=== PATIENT | male | born 1935 | race Caucasian/White ===

== ENCOUNTER 2017-04-23 12:18 | Emergency (ER) | payer MEDICARE ==
[2017-04-23 12:26] VITALS: BP 147/74
[2017-04-23] MEDS ORDERED: Albuterol/Ipratropium NEB.SOL* Albuterol 2.5 MG/Ipratropium 0.5 MG 3 ML INH ONE (13:04)
[2017-04-23] MEDS ORDERED: methylPREDNISolone 125 MG* 2 ML VIAL IV ONE (13:04)
[2017-04-23] MEDS ORDERED: methylPREDNISolone 125 MG* 2 ML VIAL IM ONE (13:12)
--- NOTE | 2017-04-23 14:14 | UC ---
Respiratory Complaint HPI - HPI Summary HPI Summary: pt p/w 1 week of cough cough productive of yellow sputum. . - History of Current Complaint Chief Complaint: UCRespiratory Stated Complaint: RESPIRATORY,SOB,WHEEZING Time Seen by Provider: 04/23/17 13:04 Hx Obtained From: Patient Onset/Duration: Gradual Onset Timing: Constant Severity Initially: Moderate Severity Currently: Moderate Pain Intensity: 0 Character: Sputum Description: - clear to yellow Aggravating Factors: Exertion, Deep Breaths Alleviating Factors: Upright Position Associated Signs And Symptoms: Positive: Dyspnea, Wheezing, URI, Nasal Congestion. Negative: Fever, Chills, Pleuritic Chest Pain, Hemoptysis, Dizziness, Hoarseness, Sinus Discomfort - Allergies/Home Medications Allergies/Adverse Reactions: Allergies Allergy/AdvReac Type Severity Reaction Status Date / Time Amoxicillin [From Augmentin] Allergy Rash Verified 04/25/17 11:57 Clavulanic Acid Allergy Rash Verified 04/25/17 11:57 [From Augmentin] PMH/Surg Hx/FS Hx/Imm Hx Endocrine History: Dyslipidemia Cardiovascular History: Hypertension Respiratory History: Other Other Respiratory History: copd GI/ History: Gastroesophageal Reflux, Other - BPH Other GI/ History: bph - Surgical History Surgical History: Yes Surgery Procedure, Year, and Place: bladder cystectomy - Family History Known Family History: Negative: Cardiac Disease, Hypertension, Diabetes - Social History Occupation: Retired Lives: With Family Alcohol Use: None Substance Use Type: None Smoking Status (MU): Former Smoker When Did the Patient Quit Smoking/Using Tobacco: 20 years ago Review of Systems Constitutional: Negative Skin: Negative Eyes: Negative ENT: Negative Respiratory: Shortness Of Breath, Cough Cardiovascular: Negative Gastrointestinal: Negative Genitourinary: Negative Motor: Negative Neurovascular: Negative Musculoskeletal: Negative Neurological: Negative Psychological: Negative All Other Systems Reviewed And Are Negative: Yes Physical Exam Triage Information Reviewed: Yes Appearance: Well-Appearing, No Pain Distress, Well-Nourished Vital Signs: Initial Vital Signs Temp 97.6 F 04/23/17 12:20 Pulse 84 04/23/17 12:20 Resp 20 04/23/17 12:20 BP 147/74 04/23/17 12:20 Pulse Ox 95 04/23/17 12:20 Vital Signs Reviewed: Yes Eyes: Positive: Conjunctiva Clear. Negative: Discharge ENT: Positive: Hearing grossly normal. Negative: Muffled/hoarse voice Neck: Positive: Supple, Nontender, No Lymphadenopathy Respiratory: Positive: No respiratory distress, No accessory muscle use, Wheezing - mod diffuse wheezing all feilds, Expiration - prolonged at bases Cardiovascular: Positive: RRR, No Murmur Musculoskeletal Exam: Normal Neurological: Positive: Alert, Muscle Tone Normal Psychological: Positive: Age Appropriate Behavior Skin Exam: Normal - warm dry normal color UC Diagnostic Evaluation - Laboratory O2 Sat by Pulse Oximetry: 95 Respiratory Course/Dx - Course Course Of Treatment: re-eval s/p neb: subjective improvement, decreased wheezing and better air movement on auscultation - Differential Dx/Diagnosis Differential Diagnosis/HQI/PQRI: Bronchitis, Exacerbation Of COPD, Lower Resp Infection Provider Diagnoses: bronchitis Discharge - Discharge Plan Condition: Stable Disposition: HOME Prescriptions: Albuterol HFA INHALER* [Ventolin HFA Inhaler*] 1 - 2 puff INH Q4H PRN #1 mdi PRN Reason: Sob/Wheezing Cefdinir [Cefdinir 300 MG CAP] 300 mg PO BID #20 cap Spacer/Aerosol-Holding Chamber [Aerochamber Plus] 1 mis XX SEE INSTRUCTIONS #1 mis predniSONE TAB* [Deltasone TAB*] 40 mg PO DAILY #8 tab Patient Education Materials: Acute Bronchitis (ED) Referrals: Non Staff,Doctor [Primary Care Provider] - Additional Instructions: PLEASE BRING THESE DISCHARGE INSTRUCTIONS IN TO THE PHARMACIST AND ASK HIM/HER TO SHOW YOU THE PROBIOTIC SUPPLEMENTS. ALL ASK HIM/HER TO SHOW YOU HOW TO USE THE AEROCHAMBER WITH THE INHALER. CEPHALOSPORINS: An antibiotic of the cephalosporin class has been prescribed. This type of antibiotic covers a wide variety of infections, including those of the skin, lungs, middle ear, and urinary tract. This antibiotic is somewhat similar to the penicillin family. In rare cases , a person who is allergic to penicillin will also be allergic to this medication. If you have had a severe allergic reaction to penicillin, and have not taken this antibiotic since that time, notify your doctor. Antibiotics which cover many germs ("broad spectrum" antibiotics) are more likely to cause diarrhea or "yeast" infections. Women prone to vaginal yeast problems may suffer an attack after taking this antibiotic. In infants, oral thrush (white spots "stuck" on the cheek) or yeast diaper rash may result. See your doctor if these problems occur. Call the doctor at once if you develop hives, itching, shortness of breath , or lightheadedness. ANYTIME YOU TAKE AN ANTIBIOTIC, IT IS IMPORTANT TO REPLENISH THE BODY'S SUPPLY OF "GOOD BACTERIA." YOU CAN GET GOOD BACTERIA FROM HIGH QUALITY CULTURED FOODS SUCH LOCAL YOGURT, SOUR KRAUT, TRACEY JOSE, NATURALLY FERMENTED PICKLES AND PROBIOTIC DRINKS. YOU CAN ALSO GET GOOD BACTERIA FROM A PROBIOTIC SUPPLEMENT. CORTICOSTEROID MEDICATION: You have been given a medicine of the cortisone class. This medication is used to control inflammation or allergy. It is usually only given for a short period of time, until the acute process subsides. There are usually no side effects from short-term use of cortisone-like medications. Some persons feel an increased sense of well-being and are not sleepy at bedtime. Long-term use of cortisone medications is best avoided, unless required for a severe condition. If your condition does not remit, or relapses after the course of corticosteroid medication, you should consult your physician. Contact the physician if you develop lightheadedness, black or tarry stools , swelling of the legs, or significant rapid change in weight. INHALED BRONCHODILATORS: You have received a prescription for an inhaled bronchodilator -- a medication which stimulates the airways in the lung to dilate. This improves the flow of air in asthma, bronchitis, and emphysema. These medicines have some similarity to adrenaline, and can cause similar side effects: shakiness, racing heart, and a sense of nervousness. These side effects decrease with time. Contact your doctor if these side effects are severe. Do not over-use the medicine. Too-frequent use of the inhaler may make it ineffective. Call your doctor if the inhaler is not controlling your symptoms at the prescribed doses. EXPECTORANT MEDICATION: WE SENT IN A SCRIPT FOR MUCINEX SO THAT IT IS EASIER FOR YOU TO PICK THE RIGHT MED AT THE PHARMACY. HOWEVER, YOU CAN ALSO GO TO THE [email or web address] [facility]ORE AND BUY PLAIN GUAIFENESIN WITHOU BINDERS OR FILLERS. An expectorant medicine has been prescribed. This type of drug makes mucous thinner, helping the sinuses, nose, and bronchial tubes to remain free of pus and mucous. Expectorants make a cough less severe and more comfortable, and help infected sinuses drain. In general, antihistamines defeat the purpose of the expectorant by making mucous thicker. They should be avoided unless specifically recommended by your physician. FOLLOW UP: RETURN FOR RE-EVALUATION IN 2 DAYS. THIS FOLLOW UP VISIT IS IMPORTANT. WE WANT TO KNOW THAT YOU ARE IMPROVING AFTER 2 DAYS OF TREATMENT. IF YOU CAN NOT GET IN TO YOUR PCP'S OFFICE, RETURN HERE FOR FOLLOW UP. FOLLOW UP SOONER IF SYMPTOMS WORSEN.
== END 2017-04-23 14:19 | disposition home or self-care (01) ==
LOC: UCCORT 12:18
DX: J40 Bronchitis, not specified as acute or chronic (principal); E78.5 Hyperlipidemia, unspecified; I10 Essential (primary) hypertension; J44.9 Chronic obstructive pulmonary disease, unspecified; K21.9 Gastro-esophageal reflux disease without esophagitis; N40.0 Benign prostatic hyperplasia without lower urinary tract symptoms; Z88.1 Allergy status to other antibiotic agents; Z87.891 Personal history of nicotine dependence
CPT/HCPCS: 96372; 99212; A9270-GY; G0463; J2930

== ENCOUNTER 2017-04-25 11:40 | Emergency (ER) | payer MEDICARE ==
[2017-04-25 11:57] VITALS: BP 157/67
--- NOTE | 2017-04-25 12:27 | UC ---
Respiratory Complaint HPI - HPI Summary HPI Summary: URI and cough. He was seen here two days agao and prescribed medications. he is feeling better. today is for a recheck. He denies cp or fever. Breathing and cough has improved - History of Current Complaint Chief Complaint: UCRespiratory Stated Complaint: RE-CHECK RESPIRATORY Time Seen by Provider: 04/25/17 12:13 Hx Obtained From: Patient Onset/Duration: Sudden Onset, Still Present Character: Cough: Nonproductive Aggravating Factors: Deep Breaths, Recumbent Position Alleviating Factors: Bronchodilator Associated Signs And Symptoms: Positive: URI, Nasal Congestion, Hoarseness. Negative: Dyspnea, Fever, Chills, Hemoptysis, Calf Pain, Calf Swelling - Allergies/Home Medications Allergies/Adverse Reactions: Allergies Allergy/AdvReac Type Severity Reaction Status Date / Time Amoxicillin [From Augmentin] Allergy Rash Verified 04/25/17 11:57 Clavulanic Acid Allergy Rash Verified 04/25/17 11:57 [From Augmentin] PMH/Surg Hx/FS Hx/Imm Hx Previously Healthy: No - recent pnuemonia a few months ago. - Surgical History Surgical History: Yes Surgery Procedure, Year, and Place: bladder cystectomy - Family History Known Family History: Negative: Cardiac Disease, Hypertension, Diabetes - Social History Alcohol Use: None Substance Use Type: None Smoking Status (MU): Former Smoker When Did the Patient Quit Smoking/Using Tobacco: 20 years ago Review of Systems Respiratory: Cough All Other Systems Reviewed And Are Negative: Yes Physical Exam Triage Information Reviewed: Yes Appearance: Well-Appearing, No Pain Distress, Well-Nourished Vital Signs: Initial Vital Signs Temp 98.0 F 04/25/17 11:54 Pulse 73 04/25/17 11:54 Resp 14 04/25/17 11:54 BP 157/67 04/25/17 11:54 Pulse Ox 96 04/25/17 11:54 Vital Signs Reviewed: Yes Eye Exam: Normal ENT Exam: Normal Neck exam: Normal Respiratory Exam: Normal Cardiovascular Exam: Normal Abdominal Exam: Normal Musculoskeletal Exam: Normal Neurological Exam: Normal Psychological Exam: Normal Skin Exam: Normal UC Diagnostic Evaluation - Laboratory O2 Sat by Pulse Oximetry: 96 Respiratory Course/Dx - Course Course Of Treatment: cough and congestion has improved. He has no worrisome symptoms or findings. he agrees to return immediately should he rebound after meds are completed. - Differential Dx/Diagnosis Provider Diagnoses: acute bronchitis. re evaluation. Discharge - Discharge Plan Condition: Good Disposition: HOME Patient Education Materials: Acute Bronchitis (ED) Referrals: Non Staff,Doctor [Primary Care Provider] - Additional Instructions: return here if you get worse again.
== END 2017-04-25 12:37 | disposition home or self-care (01) ==
LOC: UCCORT 11:40
DX: J20.9 Acute bronchitis, unspecified (principal); Z87.891 Personal history of nicotine dependence
CPT/HCPCS: 99212; G0463

== ENCOUNTER 2017-05-15 13:52 | Emergency (ER) | payer MEDICARE ==
[2017-05-15 14:02] VITALS: BP 158/71
[2017-05-15] MEDS ORDERED: Albuterol/Ipratropium NEB.SOL* Albuterol 2.5 MG/Ipratropium 0.5 MG 3 ML INH ONE (14:05)
--- NOTE | 2017-05-15 14:43 | RAD ---
HISTORY: Cough, shortness of breath COMPARISONS: September 20, 2012 VIEWS: 4: Frontal dual-energy and lateral views of the chest. FINDINGS: CARDIOMEDIASTINAL SILHOUETTE: The cardiomediastinal silhouette is normal. RAJESH: The rajesh are normal. PLEURA: The costophrenic angles are sharp. No pleural abnormalities are noted. LUNG PARENCHYMA: The lungs are clear. ABDOMEN: The upper abdomen is clear. There is no subphrenic gas. BONES AND SOFT TISSUES: No bone or soft tissue abnormalities are noted. OTHER: None. IMPRESSION: NO ACTIVE CARDIOPULMONARY DISEASE.
--- NOTE | 2017-05-15 15:23 | UC ---
Respiratory Complaint HPI - HPI Summary HPI Summary: This is a 81 yo gentleman who was treated for acute bronchitis ~ 3 weeks ago. He was treated with cefdinir, albuterol and prednisone. He has a h/o smoking but quit 20 yrs ago and has not required regular inhalers for COPD. He is visiting his grandchildren for 6 weeks in the area, but is from [place]. Before his trip he was sick with PNA. He reports he felt somewhat better with his last treatment 3 weeks ago, but has been progressively getting worse again since his medications have stopped. He reports SOB and cough with audible wheeze. No fever or chills. No n/v. He still has his albuterol inhaler and receives mild relief from its use. - History of Current Complaint Chief Complaint: UCRespiratory Stated Complaint: TROUBLE BREATHING,COUGH Pain Intensity: 0 Pain Scale Used: 0-10 Numeric - Allergies/Home Medications Allergies/Adverse Reactions: Allergies Allergy/AdvReac Type Severity Reaction Status Date / Time Amoxicillin [From Augmentin] Allergy Rash Verified 05/15/17 14:02 Clavulanic Acid Allergy Rash Verified 05/15/17 14:02 [From Augmentin] PMH/Surg Hx/FS Hx/Imm Hx Respiratory History: COPD - Surgical History Surgical History: Yes Surgery Procedure, Year, and Place: bladder cystectomy - Family History Known Family History: Negative: Cardiac Disease, Hypertension, Diabetes - Social History Alcohol Use: None Substance Use Type: None Smoking Status (MU): Former Smoker When Did the Patient Quit Smoking/Using Tobacco: 20 years ago Review of Systems Constitutional: Negative Skin: Negative Eyes: Blurred Vision ENT: Negative Respiratory: Shortness Of Breath, Cough Cardiovascular: Negative Gastrointestinal: Negative Genitourinary: Negative Motor: Negative Neurovascular: Negative Musculoskeletal: Negative Neurological: Negative Psychological: Negative All Other Systems Reviewed And Are Negative: Yes Physical Exam Triage Information Reviewed: Yes Appearance: Ill-Appearing - mildly Vital Signs: Initial Vital Signs Temp 98 F 05/15/17 13:57 Pulse 88 05/15/17 13:57 Resp 14 05/15/17 13:57 BP 158/71 05/15/17 13:57 Pulse Ox 94 05/15/17 13:57 Vital Signs Reviewed: Yes ENT: Positive: Normal ENT inspection Neck: Positive: Supple, Nontender, No Lymphadenopathy Respiratory: Positive: No respiratory distress - able to speak in full sentences , but audible wheeze, Rhonchi, Wheezing - faint exp wheeze. Negative: Stridor Cardiovascular: Positive: RRR, No Murmur Abdomen Description: Positive: Nontender, Soft Musculoskeletal: Positive: No Edema UC Diagnostic Evaluation - Laboratory O2 Sat by Pulse Oximetry: 94 Diagnostic Studies Comment: CXR - NAD Respiratory Course/Dx - Course Course Of Treatment: This is a 81 yo male with question of COPD who presents with recurrent SOB and cough. No infiltrate on CXR. Treat with repeat course of steroids and abx and refill of albuterol. He returns home to [place] next week. Recommend follow up after returning home. - Differential Dx/Diagnosis Differential Diagnosis/HQI/PQRI: CHF, Pulmonary Edema, Exacerbation Of COPD, Influenza, Sinusitis Provider Diagnoses: 1. Acute bronchitis Discharge - Discharge Plan Condition: Stable Disposition: HOME Prescriptions: Albuterol HFA INHALER* [Ventolin HFA Inhaler*] 1 - 2 puff INH Q4H PRN #1 mdi PRN Reason: Sob/Wheezing DOXYcycline CAP(*) [DOXYcycline 100MG CAP(*)] 100 mg PO BID #14 cap predniSONE TAB* [Deltasone TAB*] 10 mg PO DAILY #21 tab Patient Education Materials: Acute Bronchitis (ED) Referrals: Non Staff,Doctor [Primary Care Provider] - Additional Instructions: Instructions: 1. Please take medications as directed 2. FOllow up with your primary care provider after returning home
== END 2017-05-15 15:08 | disposition home or self-care (01) ==
LOC: UCCORT 13:52
DX: J20.9 Acute bronchitis, unspecified (principal); Z88.1 Allergy status to other antibiotic agents; Z87.891 Personal history of nicotine dependence
CPT/HCPCS: 71020; 99212; A9270-GY; G0463